=== PATIENT | male | born 1965 | race Caucasian/White ===

== ENCOUNTER 2020-06-21 15:23 | Outpatient (REF) | payer SELFPAY | END 2020-06-21 15:24 | disposition home or self-care (01) | LOC: HO.BBR 15:23 | PROVIDERS: Visit Provider Internal Medicine | DX: Z13.89 Encounter for screening for other disorder (principal) ==

== ENCOUNTER 2020-09-19 12:45 | Outpatient (REF) | payer OTHER, SELFPAY | END 2020-09-19 12:46 | disposition home or self-care (01) | LOC: HO.BBR 12:45 | PROVIDERS: Visit Provider Internal Medicine | DX: Z13.89 Encounter for screening for other disorder (principal) ==

== ENCOUNTER 2020-12-19 12:22 | Outpatient (REF) | payer OTHER, SELFPAY | END 2020-12-19 12:23 | disposition home or self-care (01) | LOC: HO.BBR 12:22 | PROVIDERS: Visit Provider Internal Medicine | DX: Z13.89 Encounter for screening for other disorder (principal) ==

== ENCOUNTER 2021-03-14 11:52 | Outpatient (REF) | payer MEDICARE, OTHER, SELFPAY | END 2021-03-14 11:53 | disposition home or self-care (01) | LOC: HO.BBR 11:52 | PROVIDERS: Visit Provider Internal Medicine | DX: Z13.89 Encounter for screening for other disorder (principal) ==

== ENCOUNTER 2021-07-05 10:26 | Outpatient (REF) | payer MEDICARE, OTHER, SELFPAY ==
[2021-07-05 12:01] LABS: Hematocrit 48.1 % (42.0-52.0)
[2021-07-05 13:03] LABS: Ferritin 33 ng/mL (20-250)
== END 2021-07-05 10:27 | disposition home or self-care (01) ==
LOC: HO.BBR 10:26
PROVIDERS: PCP Internal Medicine; Visit Provider Internal Medicine
DX: E83.110 Hereditary hemochromatosis (principal)
CPT/HCPCS: 36415; 82728; 85014

== ENCOUNTER 2021-10-26 13:47 | Outpatient (REF) | payer MEDICARE, OTHER, SELFPAY ==
[2021-10-26 14:12] LABS: Hematocrit 50.5 % (42.0-52.0); Hemoglobin 17.7 g/dl (14.0-18.0)
[2021-10-26 14:55] LABS: Ferritin 46 ng/mL (20-250)
== END 2021-10-26 13:48 | disposition home or self-care (01) ==
LOC: HO.BBR 13:47
PROVIDERS: Visit Provider Internal Medicine
DX: E83.110 Hereditary hemochromatosis (principal)
CPT/HCPCS: 36415; 82728; 85014; 85018

== ENCOUNTER 2022-01-25 13:51 | Outpatient (REF) | payer MEDICARE, OTHER, SELFPAY ==
[2022-01-25 14:17] LABS: Hematocrit 47.7 % (42.0-52.0)
[2022-01-25 15:10] LABS: Ferritin 51 ng/mL (20-250)
== END 2022-01-25 13:52 | disposition home or self-care (01) ==
LOC: HO.BBR 13:51
PROVIDERS: Visit Provider Internal Medicine
DX: E83.110 Hereditary hemochromatosis (principal)
CPT/HCPCS: 36415; 82728; 85014

== ENCOUNTER 2022-04-24 14:56 | Outpatient (REF) | payer MEDICARE, OTHER, SELFPAY ==
[2022-04-24 15:14] LABS: Hematocrit 48.7 % (42.0-52.0)
[2022-04-24 16:04] LABS: Ferritin 26 ng/mL (20-250)
== END 2022-04-24 14:57 | disposition home or self-care (01) ==
LOC: HO.BBR 14:56
PROVIDERS: Visit Provider Internal Medicine
DX: E83.110 Hereditary hemochromatosis (principal)
CPT/HCPCS: 36415; 82728; 85014

== ENCOUNTER 2022-08-08 10:46 | Outpatient (REF) | payer MEDICARE, OTHER, SELFPAY ==
[2022-08-08 11:09] LABS: Hematocrit 47.6 % (42.0-52.0); Hemoglobin 16.8 g/dl (14.0-18.0)
[2022-08-08 12:04] LABS: Ferritin 46 ng/mL (20-250)
== END 2022-08-08 10:47 | disposition home or self-care (01) ==
LOC: HO.BBR 10:46
PROVIDERS: Visit Provider Internal Medicine
DX: E83.110 Hereditary hemochromatosis (principal)
CPT/HCPCS: 36415; 82728; 85014; 85018

== ENCOUNTER 2022-11-07 10:59 | Outpatient (REF) | payer MEDICARE, OTHER, SELFPAY ==
[2022-11-07 11:19] LABS: Hematocrit 47.9 % (42.0-52.0)
[2022-11-07 12:37] LABS: Ferritin 55 ng/mL (20-250)
== END 2022-11-07 11:00 | disposition home or self-care (01) ==
LOC: HO.BBR 10:59
PROVIDERS: PCP Internal Medicine; Visit Provider Internal Medicine
DX: E83.110 Hereditary hemochromatosis (principal)
CPT/HCPCS: 36415; 82728; 85014

== ENCOUNTER → 2022-11-12 10:36 | Outpatient (BNVA) | payer MEDICARE, MEDICAID, SELFPAY | PROVIDERS: PCP Internal Medicine; Visit Provider Nurse Practitioner Family | DX: Z12.11 Encounter for screening for malignant neoplasm of colon (principal); Z80.0 Family history of malignant neoplasm of digestive organs | CPT/HCPCS: 99202 ==

== ENCOUNTER 2023-02-06 12:29 | Outpatient (REF) | payer MEDICARE, MEDICAID, SELFPAY ==
[2023-02-06 13:42] LABS: Hematocrit 46.7 % (42.0-52.0)
[2023-02-06 14:43] LABS: Ferritin 71 ng/mL (20-250)
== END 2023-02-06 12:30 | disposition home or self-care (01) ==
LOC: HO.BBR 12:29
PROVIDERS: PCP Internal Medicine; Visit Provider Internal Medicine
DX: E83.110 Hereditary hemochromatosis (principal)
CPT/HCPCS: 36415; 82728; 85014

== ENCOUNTER 2023-05-08 10:43 | Outpatient (REF) | payer MEDICARE, MEDICAID, SELFPAY ==
[2023-05-08 11:11] LABS: Hematocrit 43.9 % (42.0-52.0); Hemoglobin 16.1 g/dl (14.0-18.0)
[2023-05-08 12:31] LABS: Ferritin 105 ng/mL (20-250)
== END 2023-05-08 10:44 | disposition home or self-care (01) ==
LOC: HO.BBR 10:43
PROVIDERS: PCP Internal Medicine; Visit Provider Internal Medicine
DX: E83.110 Hereditary hemochromatosis (principal)
CPT/HCPCS: 36415; 82728; 85014; 85018; 99195

== ENCOUNTER 2023-07-30 10:47 | Outpatient (REF) | payer MEDICARE, SELFPAY ==
[2023-07-30 14:45] LABS: Estimated Average Glucose 91 mg/dL; Hemoglobin A1c % 4.8 % (<6.0)
[2023-07-30 14:52] LABS: Alanine Aminotransferase 36 U/L (0-40); Albumin Level 3.8 g/dL (3.5-5.0); Alkaline Phosphatase 69 U/L (39-117); Anion Gap 14 (12-20); Aspartate Amino Transferase 64 U/L (5-37); Bilirubin Total 0.6 mg/dL (0.0-1.0); Blood Urea Nitrogen 12 mg/dL (9-16); Calcium 8.9 mg/dL (8.4-10.2); Carbon Dioxide 25 mmol/L (22-29); Chloride 103 mmol/L (96-108); Cholesterol 153 mg/dL (<200); Estimated Glomerular Filt Rate > 60; Glucose Random 102 mg/dL (60-115); HDL Cholesterol 63 mg/dL (>40); Potassium 3.4 mmol/L (3.3-5.1); Sodium 139 mmol/L (135-145); Total Protein 6.7 g/dL (6.5-8.0); Triglycerides 436 mg/dL (<150)
[2023-07-30 15:04] LABS: Prostate Specific Antigen Scr 0.32 ng/mL (<0.05-4.0)
[2023-07-30 15:11] LABS: TSH reflex Free T4 1.75 uIU/mL (0.32-4.0)
== END 2023-07-30 10:48 | disposition home or self-care (01) ==
LOC: HO.CHCLDS 10:47
PROVIDERS: Visit Provider Internal Medicine
DX: Z12.5 Encounter for screening for malignant neoplasm of prostate (principal); I10 Essential (primary) hypertension; E83.118 Other hemochromatosis; E87.6 Hypokalemia; R63.4 Abnormal weight loss
CPT/HCPCS: 36415; 80053; 80061; 83036; 84153; 84443

== ENCOUNTER 2023-08-08 10:50 | Outpatient (REF) | payer MEDICARE, SELFPAY ==
[2023-08-08 11:11] LABS: Hematocrit 44.8 % (42.0-52.0); Hemoglobin 16.3 g/dl (14.0-18.0)
[2023-08-08 12:53] LABS: Ferritin 316 ng/mL (20-250)
== END 2023-08-08 10:51 | disposition home or self-care (01) ==
LOC: HO.BBR 10:50
PROVIDERS: PCP Internal Medicine; Visit Provider Internal Medicine
DX: E83.110 Hereditary hemochromatosis (principal)
CPT/HCPCS: 36415; 82728; 85014; 85018

== ENCOUNTER 2023-08-15 11:26 | Outpatient (REF) | payer MEDICARE, SELFPAY ==
--- NOTE | ~2023-08-15 | US_ITS ---
EXAMINATION: US ABDOMEN COMPLETE CLINICAL INFORMATION: Transaminitis. COMPARISON: CT abdomen and pelvis 11/05/2016. TECHNIQUE: Real-time imaging of the abdominal viscera. FINDINGS: PANCREAS: Normal. ABDOMINAL AORTA: The proximal, mid, and distal segments are normal in caliber. INFERIOR VENA CAVA: Visualized portions are normal. LIVER: Normal. The liver is normal in size. The liver contour is normal. There is diffuse increased liver parenchymal echogenicity, consistent with hepatic steatosis. No focal hepatic lesion. There is no intrahepatic biliary duct dilatation seen. GALLBLADDER: Normal. The gallbladder is physiologically distended without evidence of stones, sludge, polyps, wall thickening or pericholecystic fluid. COMMON BILE DUCT: Normal in caliber measuring 0.3 cm in diameter. RIGHT KIDNEY: Normal. No hydronephrosis. No renal calculi or focal parenchymal lesions. The kidney measures 12.4 cm in maximum dimension. LEFT KIDNEY: Normal. No hydronephrosis. No renal calculi or focal parenchymal lesions. The kidney measures 12.6 cm in maximum dimension. SPLEEN: Normal. The spleen measures 12.5 cm in maximum dimension. FREE FLUID: None. US/US abdomen complete IMPRESSION: Hepatic steatosis. No biliary ductal dilatation.
== END 2023-08-15 11:27 | disposition home or self-care (01) ==
LOC: HO.HMGCX 11:26
PROVIDERS: PCP Internal Medicine; Visit Provider Internal Medicine
DX: R74.01 Elevation of levels of liver transaminase levels (principal)
CPT/HCPCS: 76700

== ENCOUNTER 2023-11-07 10:37 | Outpatient (REF) | payer MEDICARE, SELFPAY ==
[2023-11-07 11:00] LABS: Hematocrit 44.9 % (42.0-52.0)
[2023-11-07 12:45] LABS: Ferritin 37 ng/mL (20-250)
== END 2023-11-07 10:38 | disposition home or self-care (01) ==
LOC: HO.BBR 10:37
PROVIDERS: PCP Internal Medicine; Visit Provider Internal Medicine
DX: E83.110 Hereditary hemochromatosis (principal)
CPT/HCPCS: 36415; 82728; 85014; 85018

== ENCOUNTER 2024-02-06 11:43 | Outpatient (REF) | payer MEDICARE, SELFPAY ==
[2024-02-06 12:01] LABS: Hematocrit 48.8 % (42.0-52.0); Hemoglobin 17.3 g/dl (14.0-18.0)
[2024-02-06 13:27] LABS: Ferritin 38 ng/mL (20-250)
== END 2024-02-06 11:44 | disposition home or self-care (01) ==
LOC: HO.BBR 11:43
PROVIDERS: PCP Internal Medicine; Visit Provider Internal Medicine
DX: E83.110 Hereditary hemochromatosis (principal)
CPT/HCPCS: 36415; 82728; 85014; 85018

== ENCOUNTER 2024-06-01 15:14 | Outpatient (REF) | payer MEDICARE, SELFPAY ==
[2024-06-01 16:26] LABS: Ferritin 32 ng/mL (20-250)
== END 2024-06-01 15:15 | disposition home or self-care (01) ==
LOC: HO.BBR 15:14
PROVIDERS: PCP Internal Medicine; Visit Provider Internal Medicine
DX: E83.110 Hereditary hemochromatosis (principal)
CPT/HCPCS: 36415; 82728

== ENCOUNTER 2024-09-01 12:52 | Outpatient (REF) | payer MEDICARE, SELFPAY ==
--- OUTSIDE RECORDS SUMMARY | 2024-09-01 13:04 | XMS_ITS | Encounter Summary ---
Author Organization [employer] Address [address] [facility] [address] [place] [address] Care Team Providers Care Tuyere Fitter Name Role Phone Rosenda Meadows MD Primary Care Provider Encounter Details Date Type Department Care Team (Late st Contact Info) Description 11/26/2022 Orders Only [facility] CHC MED & PEDS [address] [place], [place] [phone] Nat Lucas LPN Social History Tobacco Use Types Packs/Day Years Used Date Smoking Tobacco: Every Day Cigarettes 1 42 Smokeless Tobacco: Never Alcohol Use Standard Drinks/Week Comments Yes 4 (1 standard drink = 0.6 oz pur e alcohol) Alcohol Answer Date Recorded Q1: How often do you have a drink containing alc ohol? 5 06/27/2022 Q2: How many drinks containi ng alcohol do you have on a typical day when you are drinking? 2 06/27/2022 Q3: How often do you have six or more drinks on one occasion? 3 06/27/2022 Depression Answer Date Recorded Patient Health Questionnaire-9 Score 0 06/27/2022 Depression Answer Date Recorded Patient Health Questionnaire-2 Score 0 06/27/2022 Sex and Gender Information Value Date Recorded Sex Assigned at Male 05/13/2022 10:22 AM EDT Legal Sex Male 10:22 AM EDT Gender Identity Choose not to disclose 10:22 AM EDT Sexual Orientation Choose not to disclose 2021 10:22 AM EDT documented as of this encounter Plan of Treatment Not on file documented as of this encounter Visit Diagnoses Not on filedocumented in this encounter Additional Health Concerns Assessment Noted Time PHQ-9 Depression Total Score: 0 06/27/20 22 2:22 PM EST documented as of this encounter Care Teams Tuyere Fitter Relationship Specialty Start Date End Date Rosenda Meadows MD [address] [place] [phone] PCP - General Internal Medicine 10/30/11 documented as of this encounter
--- OUTSIDE RECORDS SUMMARY | 2024-09-01 13:04 | XMS_ITS | Encounter Summary ---
Author Organization [employer] Address [address] [facility] [address] [place] [address] Care Team Providers Care Title I Director Name Role Phone Rosenda Meadows MD Primary Care Provider Reason for Visit * Reason Onset Date Comments Lab Orders 05/03/2024 Encounter Details Date Type Department Care Team ([facility] st Contact Info) Description 05/03/2024 Telephone [facility] CHC MED & PEDS [address] [place], [place] [phone] Rosenda Meadows MD [address] [place] [address] Lab Orders Social History Tobacco Use Types Packs/Day Years [...] Answer Date Recorded Patient Health Questionnaire-9 Score 1 07/30/2023 Patient Health Questionnaire-9 Score 1 07/30/2023 Last PHQ-9: Questionnaire Data Not on file 0 07/30/2023 Housing Stability Answer Date Recorded What is your housing situation today? I have [employer]olia [employer] 06/26/[address] you li ve. Do you have problems with any of the following? None of the above 06/26/2023 Food Insecurity Answer Date Recorded Within the past 12 months, y ou worried that your food would run out before you got money to buy more: Never True 07/21/2023 Within the past 12 months,th e food you bought just didn't last and you didn't have enough money to get more: Never True 02/2024 Transportation Answer Date Recorded In the past 12 months, has l ack of transportation kept you from medical appts, meetings, work or from getting things needed for daily living? No 07/21/2023 Utilities Answer Date Recorded In the past 12 months, has t he electric, gas, oil or water company threatened to shut off services in your home? No 07/21/2023 Depression Answer Date Recorded Patient Health Questionnaire-2 Score 0 07/30/2023 Sex and Gender Information Value Date Recorded Sex Assigned at Male 05/13/2022 10:22 AM EDT Legal Sex Male 10:22 AM EDT Gender Identity Choose not to disclose 10:22 AM EDT Sexual Orientation Choose not to disclose 2021 10:22 AM EDT documented as of this encounter Miscellaneous Notes * Telephone Encounter - Melva Lambert RN - 05/04/2024 12:45 PM EDT Pt. Requesting labs for hematochromatosis dx, noted typically done q. 3 months. Last done In January * Telephone Encounter - Araceli Sue - 05/03/2024 12:08 PM EDT Tc from pt requesting a new order for hemoglobin. documented in this encounter Plan of Treatment Not on file documented as of this encounter Visit Diagnoses Not on filedocumented in this encounter Additional Health Concerns Assessment Noted Time PHQ-9 Depression Total Score: 1 07/30/19 24 10:36 AM EST documented as of this encounter Care Teams Title I Director Relationship Specialty Start Date End Date Rosenda Meadows MD [address] [place] [id number] PCP - General Internal Medicine 10/30/11 documented as of this encounter
--- OUTSIDE RECORDS SUMMARY | 2024-09-01 13:04 | XMS_ITS | Encounter Summary ---
Author Organization [employer] Address [address] [facility] [address] [place] [address] Care Team Providers Care Photoengraving Apprentice Name Role Phone Rosenda Meadows MD Primary Care Provider Encounter Details Date Type Department Care Team (Late st Contact Info) Description 05/05/[address] [facility] CHC MED & PEDS [address] [place], [place] [phone] Rosenda Meadows MD [address] [place], [place] [phone] Other hemochromatosis (Primary Dx) Social History Tobacco Use Types Packs/Day Years [...] your housing situation today? I have [employer]olia sharpe 06/26/[address] you li [...] as of this encounter Plan of Treatment Scheduled Orders Name Type Priority Associated Diagnoses Orde r Schedule Hemoglobin and Hematocrit Lab Routine Other hemochromatosis Expected: 05/05/2024, Expires: 05/05/2025 documented as of this encounter Procedures Procedure Name Priority Date/Time Associated Diagnosis Comments FERRITIN Routine 06/01/2024 3:30 PM EST Other hemochromatosis documented in this encounter Results * Ferritin (06/01/2024 3:30 PM EST) Ferritin 32 20 - 250 ng/mL [facility] Blood Venous blood specimen / Unknown 06/01/2024 3:30 PM EST 06/01/2024 3:46 PM EST us Rosenda Meadows MD LAB BLOOD ORDERABLES Final Result [facility] [address] [place], [place] [phone] documented in this encounter Visit Diagnoses Diagnosis Other hemochromatosis- Primary documented in this encounter Additional Health Concerns Assessment Noted Time PHQ-9 Depression Total Score: 1 07/30/19 24 10:36 AM EST documented as of this encounter Care Teams Photoengraving Apprentice Relationship Specialty Start Date End Date Rosenda Meadows MD [address] [place] [phone] PCP - General Internal Medicine 10/30/11 documented as of this encounter
--- OUTSIDE RECORDS SUMMARY | 2024-09-01 13:04 | XMS_ITS | Encounter Summary ---
Author Organization [employer] Address [address] [place] [address] Care Team Providers Care Wireless Architect Name Role Phone Rosenda Meadows MD Primary Care Provider Encounter Details Date Type Department Care Team (Latest Contact Info) Description 08/23/2024 Travel Social History Tobacco Use Types Packs/Day Years Used Date Smoking Tobacco: Every Day Cigarettes 1 42 Smokeless Tobacco: Never Alcohol Use Standard Drinks/Week Comments Yes 4 (1 standard drink = 0.6 oz pur e alcohol) Alcohol Answer Date Recorded How often do you have a drink containing alcohol ? 2 08/23/2024 How many drinks containing a lcohol do you have on a typical day when you are drinking? 1 08/23/2024 How often do you have six or more drinks on one occasion? 1 08/23/2024 Depression Answer Date Recorded Patient Health Questionnaire-9 Score 0 08/23/2024 Patient Health Questionnaire-9 Score 0 08/23/2024 Last PHQ-9: Questionnaire Data Not on file 0 08/23/2024 Housing Stability Answer Date Recorded What is your housing situation today? I have magnoliaamara sharpe 08/16/[address] you li ve. Do you have problems with any of the following? None of the above 08/16/2024 Food Insecurity Answer Date Recorded Within the past 12 months, y ou worried that your food would run out before you got money to buy more: Never True 08/16/2024 Within the past 12 months,th e food you bought just didn't last and you didn't have enough money to get more: Never True 09/2024 Transportation Answer Date Recorded In the past 12 months, has l ack of transportation kept you from medical appts, meetings, work or from getting things needed for daily living? No 08/16/2024 Utilities Answer Date Recorded In the past 12 months, has t he electric, gas, oil or water [employer] threatened to shut off services in your home? No 08/16/2024 Depression Answer Date Recorded Patient Health Questionnaire-2 Score 0 08/23/2024 Internet Access Answer Date Recorded Internet Access Q1 Yes 08/16/2024 Internet Access Q2 Not on file 08/16/2024 Sex and Gender Information Value Date Recorded [...] Noted Time PHQ-9 Depression Total Score: 0 08/23/19 25 3:42 PM EST documented as of this encounter Care Teams Wireless Architect Relationship Specialty Start Date End Date Rosenda Meadows MD [address] [place] [phone] PCP - General Internal Medicine 10/30/11 documented as of this encounter
--- OUTSIDE RECORDS SUMMARY | 2024-09-01 13:04 | XMS_ITS | Encounter Summary ---
Author Organization [employer] Address [address] [facility] 7[address] [place] [address] Care Team Providers Care Food Service Steward Name Role Phone Rosenda Meadows MD Primary Care Provider Reason for Visit * Reason Comments Extended office visit Encounter Details Date Type Department Care Team (Late st Contact Info) Description 08/23/2024 2:45 PM EST Office Visit [facility] [address] [place], [place] [phone] Rosenda Meadows MD [address] [place] [address] Benign hypertension (Primary Dx); Other hemochromatosis; Dietary counseling; Exercise counseling; Class 1 obesity due to excess calories with serious comorbidity and body mass index (BMI) of 30.0 to 30.9 in adult; Other secondary acute gout of right knee; Erectile dysfunction due to arterial insufficiency; Hypercholesterolemia; Primary insomnia; Encounter for immunization Social History Tobacco Use Types Packs/Day Years [...] housing situation today? I have [place] 08/16/[address] you [...] AM EDT documented as of this encounter Last Filed Vital Signs Vital Sign Reading Time Taken Comments Blood Pressure 155/84 08/23/2024 2:49 PM EST Pulse 55 08/23/2024 2:49 PM EST Temperature 36.9 ??C (98.4 ??F) 08/23/2024 2:49 PM ES T Respiratory Rate 20 08/23/2024 2:49 PM EST Oxygen Saturation 97% 08/23/2024 2:49 PM EST Inhaled Oxygen Concentration - - Weight 121 kg (267 lb) 08/23/2024 2:49 PM EST Height 198.1 cm (6' 6 ) 08/23/2024 2:49 PM EST Body Mass Index 30.85 08/23/2024 2:49 PM EST documented in this encounter Progress Notes * Rosenda Meadows MD - 08/23/2024 2:45 PM EST Subjective Patient ID: Steven Eddy is a 59 y.o. adult who presents for Extended office visit. HPI Patient is here for an extended office visit. He is requesting a refill indomethacin for his gout. Had a recent gout attack 1 week ago. He continues to drink up to 5 drinks a day and continues to smoke 1-1 and half pack of cigarettes aday. Patient Active Problem List Diagnosis Benign hypertension Hypokalemia Insomnia Non-allergic asthma Peripheral nerve entrapment syndrome Hemochromatosis Dental caries Dental abscess Generalized aggressive severe periodontitis Dental calculus Current Outpatient Medications on File Prior to Visit Medication Sig Dispense Refill albuterol (ProAir HFA) 108 (90 Base) MCG/ACT inhaler INHALE 2 PUFFS BY MOUTH EVERY 4-6 HOURS NEEDED 8.5 g 5 aspirin 81 MG EC tablet Take 1 tablet by mouth 1 (one) time each day. atenolol (Tenormin) 100 MG tablet TAKE 1 TABLET BY MOUTH EVERY DAY 90 tablet 1 carBAMazepine XR (TEGretol XR) 200 MG 12 hr tablet TAKE 1 TABLET BY MOUTH EVERY 12 HOURS 180 tablet1 lisinopril 5 MG tablet TAKE 1 TABLET BY MOUTH EVERY DAY 90 tablet 1 nicotine (Nicoderm, Step 1) 21 MG/24HR patch Place 1 patch on the skin 1 (one) time each day. Remove at bedtime simvastatin (Zocor) 20 MG tablet TAKE 1 TABLET BY MOUTH EVERY DAY IN THE EVENING 90 tablet 1 traZODone (Desyrel) 150 MG tablet TAKE TWO TABLETS BY MOUTH AT BEDTIME 60 tablet 5 traZODone (Desyrel) 150 MG tablet TAKE TWO TABLETS BY MOUTH AT BEDTIME 60 tablet 11 [DISCONTINUED] atenolol (Tenormin) 100 MG tablet Take 1 tablet (100 mg) by mouth Once per day. 90 tablet 3 [DISCONTINUED] lisinopril 5 MG tablet TAKE 1 TABLET BY MOUTH EVERY DAY ONE DOSE 90 tablet 1 [DISCONTINUED] simvastatin (Zocor) 20 MG tablet Take 1 tablet (20 mg) by mouth in the evening. 90 tablet 3 [DISCONTINUED] traZODone (Desyrel) 300 MG tablet Take 1 tablet by mouth at bedtime. [DISCONTINUED] vardenafil (Levitra) 20 MG tablet TAKE 1 TABLET 1 HOUR BEFORE SEXUAL RELATIONS ONCE DAILY NEEDED. 12 tablet 0 No current facility-administered medications on file prior to visit. No Known Allergies Review of Systems Constitutional: Negative for appetite change, chills and diaphoresis. Eyes: Negative for pain, redness and itching. Respiratory: Negative for cough, choking and chest tightness. Gastrointestinal: Negative for anal bleeding and blood in stool. Musculoskeletal: Positive for arthralgias. Objective Physical Exam Constitutional: General: Steven is not in acute distress. Appearance: Normal appearance. Steven is obese. Steven is not ill-appearing, toxic-appearing or diaphoretic. Cardiovascular: Rate and Rhythm: Normal rate. Pulmonary: Effort: Pulmonary effort is normal. No respiratory distress. Breath sounds: No stridor. No wheezing or rhonchi. Abdominal: Palpations: Abdomen is soft. Genitourinary: Penis: Normal. Testes: Normal. Skin: Comments: Erythema and telangiectasias of the cheeks and forehead Neurological: General: No focal deficit present. Mental Status: Steven is alert. Assessment/Plan Diagnoses and all orders for this visit: Benign hypertension Comments: Elevated BP DASH diet Increase lisinopril to 10 mg once a day Continue with rest of medication Orders: - Lipid Panel, Standard; Future - Hepatitis C Viral RNA, Quantitative, Real-Time PCR; Future - CBC auto differential; Future - Comprehensive Metabolic Panel; Future - TSH W/Reflex to FT4; Future - lisinopril 10 MG tablet; TAKE 1 TABLET BY MOUTH EVERY DAY ONE DOSE - atenolol (Tenormin) 100 MG tablet; Take 1 tablet (100 mg) by mouth Once per day. Other hemochromatosis Comments: Continue with phlebotomy as directed every 3 months Orders: - Lipid Panel, Standard; Future - Hepatitis C Viral RNA, Quantitative, Real-Time PCR; Future - CBC auto differential; Future - Comprehensive Metabolic Panel; Future - TSH W/Reflex to FT4; Future Dietary counseling Exercise counseling Class 1 obesity due to excess calories with serious comorbidity and body mass index (BMI) of 30.0 to 30.9 in adult Dietary Recommendations: Fruits, vegetables, whole grains, protein foods, and fat-free or low-fat dairy products are healthychoices. Eat different types of protein foods in your diet. This can include seafood, lean meats, poultry, beans, peas, lentils, nuts, seeds, soy products, and eggs. Limit foods and beverages higher in added sugars, saturated fat, and sodium. Exercise Recommendations: At least 150 minutes of moderate-intensity physical activity per week, or an equivalent combinationof moderate- and vigorous-intensity activity Other secondary acute gout of right knee Comments: Avoidance of alcohol recommended Low purine diet Orders: - indomethacin (Indocin) 50 MG capsule; Take 1 capsule (50 mg) by mouth with breakfast and with evening meal. Erectile dysfunction due to arterial insufficiency - vardenafil (Levitra) 20 MG tablet; Take 1 tablet (20 mg) by mouth if needed each day for erectiledysfunction. Hypercholesterolemia Comments: Continue with the low-cholesterol diet and the same medication Lipid panel ordered. Patient will be contacted with results Orders: - simvastatin (Zocor) 20 MG tablet; Take 1 tablet (20 mg) by mouth in the evening. Primary insomnia - traZODone (Desyrel) 300 MG tablet; Take 1 tablet (300 mg) by mouth at bedtime. Encounter for immunization - TDAP VACCINE 7 yrs + Lengthy discussion held regarding the need to perform a Cologuard. Patient agreed to try to do it this time. He is not interested in getting help to quit smoking. Patient also feels that he does not need help to quit drinking. He was advised to limit his drinking to no more than 2 drinks a day. documented in this encounter Miscellaneous Notes * Patient Education Note - Rosenda Meadows MD - 08/24/2024 12:36 AM EST Images from the original note were not included. Patient Education Table of Contents Low-Purine Eating Plan To view videos and all your education online visit, [email or web address] or scan this QR code with your smartphone. Access to this content will in one year. Low-Purine Eating Plan A low-purine eating plan involves making food choices to limit your purine intake. Purine is a kindof uric acid. Too much uric acid in your blood can cause certain conditions, such as gout and kidney stones. Eating a low-purine diet may help control these conditions. What are tips for following this plan? Shopping Avoid buying products that contain high-fructose corn syrup. Check for this on food labels. It is commonly found in many processed foods and soft drinks. Be sure to check for it in baked goods such as cookies, canned fruits, and cereals and cereal bars. Avoid buying veal, chicken breast with skin, jean, and organ meats such as liver. These types of meats tend to have the highest purine content. Choose dairy products. These may lower uric acid levels. Avoid certain types of fish. Not all fish and seafood have high purine content. Examples with high purine content include anchovies, trout, tuna, sardines, and salmon. Avoid buying beverages that contain alcohol, particularly beer and hard liquor. Alcohol can affect the way your body gets rid of uric acid. Meal planning Learn which foods do or do not affect you. If you find out that a food tends to cause your gout symptoms to flare up, avoid eating that food. You can enjoy foods that do not cause problems. If you have any questions about a food item, talk with your dietitian or health care provider. Reduce the overall amount of meat in your diet. When you do eat meat, choose ones with lower purinecontent. Include plenty of fruits and vegetables. Although some vegetables may have a high purine content?such as asparagus, mushrooms, spinach, or cauliflower?it has been shown that these do not contribute to uric acid blood levels as much. Consume at least 1 dairy serving a day. This has been shown to decrease uric acid levels. General information If you drink alcohol: ? Limit how much you have to: ? 0?1 drink a day for women who are not . ? 0?2 drinks a day for men. ? Know how much alcohol is in a drink. In the [place] one drink equals one 12 oz bottle of beer (355 mL), one 5 oz glass of wine (148 mL), or one 1? oz glass of hard liquor (44 mL). Drink plenty of water. Try to drink enough to keep your urine pale yellow. Fluids can help remove uric acid from your body. Work with your health care provider and dietitian to develop a plan to achieve or maintain a healthy weight. Losing weight may help reduce uric acid in your blood. What foods are recommended? The following are some types of foods that are good choices when limiting purine intake: Fresh or frozen fruits and vegetables. Whole grains, breads, cereals, and pasta. Rice. Beans, peas, legumes. Nuts and seeds. Dairy products. Fats and oils. The items listed above may not be a complete list. Talk with a dietitian about what dietary choicesare best for you. What foods are not recommended? Limit your intake of foods high in purines, including: Beer and other alcohol. Meat-based gravy or sauce. Canned or fresh fish, such as: ? Anchovies, sardines, lee, salmon, and tuna. ? Mussels and scallops. ? Codfish, trout, and primitivo. Rivera, veal, chicken breast with skin, and jean. Organ meats, such as: ? Liver or kidney. ? Tripe. ? Sweetbreads (thymus gland or pancreas). Wild game or goose. Yeast or yeast extract supplements. Drinks sweetened with high-fructose corn syrup, such as soda. Processed foods made with high-fructose corn syrup. The items listed above may not be a complete list of foods and beverages you should limit. Contact a dietitian for more information. Summary Eating a low-purine diet may help control conditions caused by too much uric acid in the body, suchas gout or kidney stones. Choose low-purine foods, limit alcohol, and limit high-fructose corn syrup. You will learn over time which foods do or do not affect you. If you find out that a food tends to cause your gout symptoms to flare up, avoid eating that food. This information is not intended to replace advice given to you by your health care provider. Make sure you discuss any questions you have with your health care provider. Document Released: 2011-10-25 Document Updated: 2022-06-13 Document Reviewed: 2022-06-13 [employer] Patient Education ? 2023 [employer]. documented in this encounter Plan of Treatment Scheduled Orders Name Type Priority Associated Diagnoses Orde r Schedule Lipid Panel, Standard Lab Routine Benign hypertension Other hemochromatosis Expected: 08/23/2024 (Approximate), Expires: 08/23/2025 Hepatitis C Viral RNA, Quantitative, Real-Time PCR Lab Routine Benign hypertension Other hemochromatosis Expected: 08/23/2024 (Approximate), Expires: 08/23/2025 CBC auto differential Lab Routine Benign hypertension Other hemochromatosis Expected: 08/23/2024 (Approximate), Expires: 08/23/2025 Comprehensive Metabolic Panel Lab Routine Benign hypertension Other hemochromatosis Expected: 08/23/2024 (Approximate), Expires: 08/23/2025 TSH W/Reflex to FT4 Lab Routine Benign hypertension Other hemochromatosis Expected: 08/23/2024 (Approximate), Expires: 08/23/2025 documented as of this encounter Visit Diagnoses Diagnosis Benign hypertension- Primary Essential hypertension, benign Other hemochromatosis Dietary counseling Dietary surveillance and counseling Exercise counseling Class 1 obesity due to excess calories with serious comorbidity and body mass index (BMI) of 30.0 to 30.9 in adult Other secondary acute gout of right knee Erectile dysfunction due to arterial insufficiency Hypercholesterolemia Pure hypercholesterolemia Primary insomnia Persistent disorder of initiating or maintaining sleep Encounter for immunization documented in this encounter Additional Health Concerns Assessment Noted Time PHQ-9 Depression Total Score: 0 08/23/19 25 3:42 PM EST documented as of this encounter Care Teams Food Service Steward Relationship Specialty Start Date End Date Rosenda Meadows MD [address] [place] [id number] PCP - General Internal Medicine 10/30/11 documented as of this encounter
--- OUTSIDE RECORDS SUMMARY | 2024-09-01 13:04 | XMS_ITS | Encounter Summary ---
Author Organization [employer] Address [address] [facility] 7[address] [place] [address] Care Team Providers Care Head Turbine Operator Name Role Phone Rosenda Meadows MD Primary Care Provider Encounter Details Date Type Department Care Team (Late st Contact Info) Description 05/08/2023 Telephone [facility] [address] [place] [address] Rosenda Meadows MD [address] [place], [place] [phone] Social History Tobacco Use Types Packs/Day Years [...] Time PHQ-9 Depression Total Score: 0 06/27/20 2:22 PM EST documented as of this encounter Care Teams Head Turbine Operator Relationship Specialty Start Date End Date Rosenda Meadows MD [address] [place] [id number] PCP - General Internal Medicine 10/30/11 documented as of this encounter
--- OUTSIDE RECORDS SUMMARY | 2024-09-01 13:04 | XMS_ITS | Encounter Summary ---
Author Organization [employer] Address [address] [place] [address] [address] [place] [address] Care Team Providers Care Satellite Installer Name Role Phone Rosenda Meadows MD Primary Care Provider [phone] Reason for Referral * Imaging (Routine) - Closed Specialty Diagnoses / Procedures Referred By Contac t Referred To Contact Radiology Diagnoses Weight loss Smoking Procedures CT Low Dose Screening Rosenda Meadows MD [address] [place] [phone] Phone: tel: fax: [facility] [address] [place] [address] Phone: tel: fax: Referral ID Status Reason Start Date Expiration Date Visits Re quested Visits Authorized [id number] Closed 08/08/2023 08/07/2024 1 1 * Imaging (Routine) - Closed Specialty Diagnoses / Procedures Referred By Contac t Referred To Contact Radiology Diagnoses Transaminitis Procedures US Abdomen Complete Rosenda Meadows MD [address] [place] [address] Phone: tel: fax: [facility] [address] [place] [address] Phone: tel: fax: Referral ID Status Reason Start Date Expiration Date Visits Re quested Visits Authorized [id number] Closed 07/30/2023 07/29/2024 1 1 Encounter Details Date Type Department Care Team (Late st Contact Info) Description 07/30/2023 Orders Only [facility] [address] [place] [address] Rosenda Meadows MD [address] [place] [address] Transaminitis (Primary Dx); Encounter for screening for other viral diseases; Benign hypertension; Hypercholesterolemia; Weight loss; Smoking Social History Tobacco Use Types Packs/Day Years [...] Type Priority Associated Diagnoses Orde r Schedule Hepatitis Panel, General Lab Routine Transaminitis Encounter for screening for other viral diseases Expected: 07/30/2023 (Approximate), Expires: 07/30/2024 CT Low Dose Screening Imaging Routine Weight loss Smoking Expected: 08/08/2023, Expires: 08/08/2024 documented as of this encounter Procedures Procedure Name Priority Date/Time Associated Diagnosis Comments US ABDOMEN COMPLETE Routine 08/15/2023 1 1:46 AM EST Transaminitis documented in this encounter Results * US Abdomen Complete (08/15/2023 11:46 AM EST) Anatomical Region Laterality Modality Abdomen Ultrasound 08/15/2023 11:4 6 AM EST Narrative 08/18/2023 10:55 AM EST ? [facility] ?[address] ? [place] [address] ? Ultrasound Report ? Signed ? Patient: Steven Eddy ?MR#: [id number] ?? [id number] ? : 1965 ?Acct:[id number] ? Age/Sex: 58 / M ?ADM Date: 08/15/23 ? Loc: HO.HMGCX ? Attending Dr: Rosenda Meadows MD ? Ordering Physician: Rosenda Meadows MD ?? Date of Service: 08/15/23 ?? Procedure(s): US abdomen complete ?? Accession Number(s): [id number] ? cc: Rosenda Meadows MD ? EXAMINATION: ?? US ABDOMEN COMPLETE ? CLINICAL INFORMATION: ?? Transaminitis. ? COMPARISON: ?? CT abdomen and pelvis 11/05/2016. ? TECHNIQUE: ?? Real-time imaging of the abdominal viscera. ? FINDINGS: ? PANCREAS: Normal. ? ABDOMINAL AORTA: The proximal, mid, and distal segments are normal in ?? caliber. ? INFERIOR VENA CAVA: Visualized portions are normal. ? LIVER: Normal. The liver is normal in size. The liver contour is ?? normal. There is diffuse increased liver parenchymal echogenicity, ?? consistent with hepatic steatosis. ??No focal hepatic lesion. There is ?? no intrahepatic biliary duct dilatation seen. ? GALLBLADDER: Normal. The gallbladder is physiologically distended ?? without evidence of stones, sludge, polyps, wall thickening or ?? pericholecystic fluid. ? COMMON BILE DUCT: Normal in caliber measuring 0.3 cm in diameter. ? RIGHT KIDNEY: Normal. No hydronephrosis. No renal calculi or focal ?? parenchymal lesions. The kidney measures 12.4 cm in maximum dimension. ? LEFT KIDNEY: Normal. No hydronephrosis. No renal calculi or focal ?? parenchymal lesions. The kidney measures 12.6 cm in maximum dimension. ? SPLEEN: Normal. The spleen measures 12.5 cm in maximum dimension. ? FREE FLUID: None. ? US/US abdomen complete ?? IMPRESSION: ?? Hepatic steatosis. No biliary ductal dilatation. ? Dictated By: ?Jl Brush MD ? Signed By: ?<Electronically signed by Jl Brush MD in OV> ?08/18/23 1051 ? DD/ 1146 ? TD/TT: ? Channel Cementer Outsole Machine: JK ? Procedure Note Danieladolfo, Image - 08/18/2023 [facility] [address] [place] [address] [place] [address] Ultrasound Report Signed Patient: Steven Eddy AMR#: [id number] : 1965Acct:[id number] Age/Sex: 58 / MADM Date: 08/15/23 Loc: HO.HMGCX Attending Dr: Rosenda Meadows MD Ordering Physician: Rosenda Meadows MD Date of Service: 08/15/23 Procedure(s): US abdomen complete Accession Number(s): [id number] cc: Rosenda Meadows MD EXAMINATION: US ABDOMEN COMPLETE CLINICAL INFORMATION: Transaminitis. COMPARISON: CT abdomen and pelvis 11/05/2016. TECHNIQUE: Real-time imaging of the abdominal viscera. FINDINGS: PANCREAS: Normal. ABDOMINAL AORTA: The proximal, mid, and distal segments are normal in caliber. INFERIOR VENA CAVA: Visualized portions are normal. LIVER: Normal. The liver is normal in size. The liver contour is normal. There is diffuse increased liver parenchymal echogenicity, consistent with hepatic steatosis. No focal hepatic lesion. There is no intrahepatic biliary duct dilatation seen. GALLBLADDER: Normal. The gallbladder is physiologically distended without evidence of stones, sludge, polyps, wall thickening or pericholecystic fluid. COMMON BILE DUCT: Normal in caliber measuring 0.3 cm in diameter. RIGHT KIDNEY: Normal. No hydronephrosis. No renal calculi or focal parenchymal lesions. The kidney measures 12.4 cm in maximum dimension. LEFT KIDNEY: Normal. No hydronephrosis. No renal calculi or focal parenchymal lesions. The kidney measures 12.6 cm in maximum dimension. SPLEEN: Normal. The spleen measures 12.5 cm in maximum dimension. FREE FLUID: None. US/US abdomen complete IMPRESSION: Hepatic steatosis. No biliary ductal dilatation. Dictated By: Jl Brush MD Signed By: <Electronically signed by Jl Brush MD in OV> 08/18/23 1051 DD/ 1146 TD/TT: Channel Cementer Outsole Machine: JK us Rosenda Meadows MD IMG US PROCEDURES Final Res ult documented in this encounter Visit Diagnoses Diagnosis Transaminitis- Primary Nonspecific elevation of levels of transaminase or lactic acid dehydrogenase (LDH) Encounter for screening for other viral diseases Benign hypertension Essential hypertension, benign Hypercholesterolemia Pure hypercholesterolemia Weight loss Loss of weight Smoking Tobacco use disorder documented in this encounter Additional Health Concerns Assessment Noted Time PHQ-9 Depression Total Score: 1 07/30/19 24 10:36 AM EST documented as of this encounter Care Teams Satellite Installer Relationship Specialty Start Date End Date Rosenda Meadows MD [address] [place] [id number] PCP - General Internal Medicine 10/30/11 documented as of this encounter
--- OUTSIDE RECORDS SUMMARY | 2024-09-01 13:04 | XMS_ITS | Encounter Summary ---
Author Organization [employer] Address [address] [facility] [address]t [place] [address] Care Team Providers Care Member Of Technical Staff Name Role Phone Rosenda Meadows MD Primary Care Provider [phone]- [phone] Reason for Visit * Reason Comments Pre-visit Planning SDOH negative, Tobac co screening negative. Encounter Details Date Type Department Care Team ([facility] st Contact Info) Description 08/16/2024 Patient Outreach [facility] [address] [place], [place] [phone] Rosenda Meadows MD [address] [place] [address] Pre-visit Planning (SDOH negative, Tobacco screening negative.) Social History Tobacco Use Types Packs/Day Years [...] Recorded Patient Health Questionnaire-2 Score 0 07/30/2023 Internet Access Answer Date Recorded Internet Access Q1 Yes 08/16/2024 Internet Access Q2 Not on file 08/16/2024 Sex and Gender Information Value Date Recorded Sex Assigned at Male 05/13/2022 10:22 AM EDT Legal Sex Male 10:22 AM EDT Gender Identity Choose not to disclose 10:22 AM EDT Sexual Orientation Choose not to disclose 2021 10:22 AM EDT documented as of this encounter Progress Notes * Marika Camarena - 08/16/2024 4:38 PM EST DANIA Bhakta placed successful outbound call to patient for pre-visit planning. Patient name and confirmed. Patient confirms appt date and time, and has transportation arrangements. Biggest concern for appointment at this time is no concerns. Appropriate screenings completed in anticipation ofappointment. documented in this encounter Plan of Treatment Not on file documented as of this encounter Visit Diagnoses Not on filedocumented in this encounter Additional Health Concerns Assessment Noted Time PHQ-9 Depression Total Score: 1 07/30/19 24 10:36 AM EST documented as of this encounter Care Teams Member Of Technical Staff Relationship Specialty Start Date End Date Rosenda Meadows MD [address] [place] [address] PCP - General Internal Medicine 10/30/11 documented as of this encounter
--- OUTSIDE RECORDS SUMMARY | 2024-09-01 13:04 | XMS_ITS | Encounter Summary ---
Author Organization [email or web address] Address [address] [facility] [address] [place] [address] Care Team Providers Care Vice President Marketing & Development Name Role Phone Rosenda Meadows MD Primary Care Provider Encounter Details Date Type Department Care Team (Late st Contact Info) Description 04/02/2023 Orders Only [facility] MED & PEDS [address] [place], [place] [phone] Rosenda Meadows MD [address] [place], [place] [phone] Polyp of colon, unspecified part of colon, unspecified type (Primary Dx) Social History Tobacco Use Types [...] as of this encounter Visit Diagnoses Diagnosis Polyp of colon, unspecified part of colon, unspecified type- Primary documented in this encounter Additional Health Concerns Assessment Noted Time PHQ-9 Depression Total Score: 0 06/27/20 22 2:22 PM EST documented as of this encounter Care Teams Vice President Marketing & Development Relationship Specialty Start Date End Date Rosenda Meadows MD [address] [place] [address] PCP - General Internal Medicine 10/30/11 documented as of this encounter
--- OUTSIDE RECORDS SUMMARY | 2024-09-01 13:04 | XMS_ITS | Encounter Summary ---
Author Organization [employer] Address 75 [facility] [address] [place] [address] Care Team Providers Care Flight Deck Officer Name Role Phone Rosenda Meadows MD Primary Care Provider [phone] Reason for Visit * Reason Onset Date Comments chart prep 08/19/2024 Encounter Details Date Type Department Care Team ([facility] st Contact Info) Description 08/19/2024 Telephone C CHC MED & PEDS [address] [place], [place] [phone] Rosenda Meadows MD 505 [place] [address] chart prep Social History Tobacco Use Types Packs/Day Years [...] encounter Miscellaneous Notes * Telephone Encounter - Diamond Byrnes [place] - 08/19/2024 3:30 PM EST Chart Prep Labs: none Images: none Vaccines due: yes Referrals: pending appt Screenings: colonoscopy Overdue care gaps: Sbirt, SDOH, PHQ-9 documented in this encounter Plan of Treatment Not on file documented as of this encounter Visit Diagnoses Not on filedocumented in this encounter Additional Health Concerns Assessment Noted Time PHQ-9 Depression Total Score: 1 07/30/19 24 10:36 AM EST documented as of this encounter Care Teams Flight Deck Officer Relationship Specialty Start Date End Date Rosenda Meadows MD [address] [place] [address] [place] [address] PCP - General Internal Medicine 10/30/11 documented as of this encounter
--- OUTSIDE RECORDS SUMMARY | 2024-09-01 13:04 | XMS_ITS | Encounter Summary ---
Author Organization [employer] Address [address] [facility] [address] [place] [address] Care Team Providers Care Caramel Candy Maker Name Role Phone Rosenda Meadows MD Primary Care Provider Encounter Details Date Type Department Care Team (Late st Contact Info) Description 05/25/2024 Telephone [facility] MEDICINE [address] [place], [place] [phone] Rosenda Meadows MD [address] [place], [place] [phone] Social History Tobacco Use Types Packs/Day Years [...] is your housing situation today? I have magnloia sharpe 06/26/[address] you [...] encounter Miscellaneous Notes * Telephone Encounter - Kassi Lobo LPN - 05/25/2024 2:04 PM EST Incoming call to the Critical Result line 05/25/24 at 2:08 PM Name of Caller/Facility:Mariama [facility] Blood [facility] Callback number: [phone] Reason for Call: Orders and clarification required for Hemachromatosis Phlebotomy orders. Please call Mariama Directly as she did not get faxed [facility] form for Theraputic Phlebotomy and H&H and Ferritin need to be requested on that form also. Message to be forwarded to Rosenda Meadows MD and team nurses for follow up. documented in this encounter Plan of Treatment Not on file documented as of this encounter Visit Diagnoses Not on filedocumented in this encounter Additional Health Concerns Assessment Noted Time PHQ-9 Depression Total Score: 1 07/30/19 10:36 AM EST documented as of this encounter Care Teams Caramel Candy Maker Relationship Specialty Start Date End Date Rosenda Meadows MD [address] [place] [address] PCP - General Internal Medicine 10/30/11 documented as of this encounter
--- OUTSIDE RECORDS SUMMARY | 2024-09-01 13:04 | XMS_ITS | Encounter Summary ---
Author Organization [employer] Address [address] [facility] 7[address] [place] [address] Care Team Providers Care Cement Grinding Mill Operator Name Role Phone Rosenda Meaodws MD Primary Care Provider Encounter Details Date Type Department Care Team (Late st Contact Info) Description 04/08/2023 Orders Only [facility] CHC MED & PEDS [address] [place], [place] [phone] Rosenda Meadows MD 505 [place] [address] Polyp of colon, unspecified part of colon, unspecified type Social History Tobacco Use Types Packs/Day Years [...] colon, unspecified part of colon, unspecified type documented in this encounter Additional Health Concerns Assessment Noted Time PHQ-9 Depression Total Score: 0 06/27/20 22 2:22 PM EST documented as of this encounter Care Teams Cement Grinding Mill Operator Relationship Specialty Start Date End Date Rosenda Meadows MD [address] [place] [address] PCP - General Internal Medicine 10/30/11 documented as of this encounter
--- OUTSIDE RECORDS SUMMARY | 2024-09-01 13:04 | XMS_ITS | Clinical Summary ---
Author Organization [employer] Address [address] [facility] 7t [place] [address] Care Team Providers Care Residential Worker Name Role Phone Rosenda Meadows MD Primary Care Provider Allergies No known active allergies Medications aspirin 81 MG EC tablet Take 1 tablet by mouth 1 (one) time each day. 03/25/20 19 Active nicotine (Nicoderm, Step 1) 21 MG/24HR patch Place 1 patch on the skin 1 (one) time each day. Remove at bedtime 03/25/20 19 Active traZODone (Desyrel) 150 MG tablet TAKE TWO TABLETS BY MOUTH AT BEDTIME 60 tablet 5 05/30/20 23 Active albuterol (ProAir HFA) 108 (90 Base) MCG/ACT inhaler INHALE 2 PUFFS BY MOUTH EVERY 4-6 HOURS NEEDED 8.5 g 5 07/09/20 23 Active carBAMazepine XR (TEGretol XR) 200 MG 12 hr tablet TAKE 1 TABLET BY MOUTH EVERY 12 HOURS 180 tablet 1 05/03/20 24 Active atenolol (Tenormin) 100 MG tabletIndication s:Benign hypertension TAKE 1 TABLET BY MOUTH EVERY DAY 90 tablet 1 05/03/20 24 Active lisinopril 5 MG tablet TAKE 1 TABLET BY MOUTH EVERY DAY 90 tablet 1 05/03/20 24 Active simvastatin (Zocor) 20 MG tabletIndication s:Hypercholester olemia TAKE 1 TABLET BY MOUTH EVERY DAY IN THE EVENING 90 tablet 1 05/03/20 24 Active traZODone (Desyrel) 150 MG tablet TAKE TWO TABLETS BY MOUTH AT BEDTIME 60 tablet 11 06/03/20 24 Active indomethacin (Indocin) 50 MG capsuleIndicatio ns:Other secondary acute gout of right knee Take 1 capsule (50 mg) by mouth with breakfast and with evening meal. 60 capsule 2 08/23/19 25 025 Active lisinopril 10 MG tabletIndication s:Benign hypertension TAKE 1 TABLET BY MOUTH EVERY DAY ONE DOSE 90 tablet 3 08/23/19 25 Active vardenafil (Levitra) 20 MG tabletIndication s:Erectile dysfunction due to arterial insufficiency Take 1 tablet (20 mg) by mouth if needed each day for erectile dysfunction. 12 tablet 3 08/23/19 25 Active atenolol (Tenormin) 100 MG tabletIndication s:Benign hypertension Take 1 tablet (100 mg) by mouth Once per day. 90 tablet 3 08/23/19 25 Active simvastatin (Zocor) 20 MG tabletIndication s:Hypercholester olemia Take 1 tablet (20 mg) by mouth in the evening. 90 tablet 3 08/23/19 25 Active traZODone (Desyrel) 300 MG tabletIndication s:Primary insomnia Take 1 tablet (300 mg) by mouth at bedtime. 90 tablet 3 08/23/19 25 Active traZODone (Desyrel) 300 MG tablet Take 1 tablet by mouth at bedtime. 11/20/19 22 025 Discontinued(R eorder (will not trigger notification to Pharmacy)) atenolol (Tenormin) 100 MG tabletIndication s:Benign hypertension Take 1 tablet (100 mg) by mouth Once per day. 90 tablet 3 11/05/19 24 025 Discontinued(R eorder (will not trigger notification to Pharmacy)) lisinopril 5 MG tablet TAKE 1 TABLET BY MOUTH EVERY DAY ONE DOSE 90 tablet 1 11/05/19 24 025 Discontinued(R eorder (will not trigger notification to Pharmacy)) simvastatin (Zocor) 20 MG tabletIndication s:Hypercholester olemia Take 1 tablet (20 mg) by mouth in the evening. 90 tablet 3 11/05/19 24 025 Discontinued(R eorder (will not trigger notification to Pharmacy)) vardenafil (Levitra) 20 MG tabletIndication s:Erectile dysfunction due to arterial insufficiency TAKE 1 TABLET 1 HOUR BEFORE SEXUAL RELATIONS ONCE DAILY NEEDED. 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/25/2016 Hypokalemia 02/22/2014 Benign hypertension 11/22/2011 Non-allergic asthma 11/22/2011 Encounters Date Type Department Care Team Description 08/23/2024 2:45 PM EST Office Visit [facility] [address] [place] [phone] Rosenda Meadows MD Benign hypertension (Primary Dx); Other hemochromatosis; Dietary counseling; Exercise counseling; Class 1 obesity due to excess calories with serious comorbidity and body mass index (BMI) of 30.0 to 30.9 in adult; Other secondary acute gout of right knee; Erectile dysfunction due to arterial insufficiency; Hypercholesterolemia; Primary insomnia; Encounter for immunization 08/23/2024 Travel 08/19/2024 Telephone [facility] [address] [place] [address] Rosenda Meadows MD chart prep 08/16/2024 Patient Outreach [facility] [address] [place] [address] Rosenda Meadows MD Pre-visit Planning (SDOH negative, Tobacco screening negative.) 07/29/2024 Refill [facility] [address] [place] [address] Washington Grullon MD Erectile dysfunction due to arterial insufficiency 06/23/2024 Refill [facility] [address] [place] [address] Rosenda Meadows MD Erectile dysfunction due to arterial insufficiency 06/03/2024 Refill [facility] [address] [place] [address] Rosenda Meadows MD 06/01/2024 Orders Only [facility] [address] [place] [address] Rosenda Meadows MD from Last 3 Months Immunizations Name Administration Dates Next Due Tdap 08/23/2024 Family History Medical History Relation Name Comments Hemochromatosis Father Coronary artery disease Mother Relation Name Status Comments Father Mother Social History Tobacco Use Types Packs/Day Years Used Date Smoking Tobacco: Every Day Cigarettes 1 42 Smokeless Tobacco: Never Tobacco Cessation:Ready to Q uit: Not Asked; Counseling Given: Not Answered Alcohol Use Standard Drinks/Week Comments Yes 4 [...] not to disclose 2021 10:22 AM EDT Last Filed Vital Signs Vital Sign Reading [...] Mass Index 30.85 08/23/2024 2:49 PM EST Plan of Treatment Health Maintenance Due Date Last Done Comments CT Colonography 1967 Colonoscopy 1967 Colorectal Cancer Screening 1967 Dental Prophylaxis 1967 FIT DNA/Cologuard 1967 FIT 1967 FOBT 1967 HIV Screening 1965 Sigmoidoscopy 1967 Hepatitis C Screening 1985 Lung Cancer Screening 2017 Zoster Vaccines (1 of 2) 2017 Dental Oral Exam 11/12/2023 05/13/2023 Dental X-Ray: Bitewings 05/14/2024 05/13/2023 Influenza Vaccine (#1) 2025 Postp oned from 03/14/2024 (Patient Refused) Alcohol/Substance Use Screening 08/23/2025 08/23/2024 COVID-19 Vaccine (1 - 2023-2 5 season) 2025 Postponed from 03/14 (Patient Refused) Depression Screening 08/23/2025 08/23/2024, 08/23/2024 Hepatitis B Vaccines (1 of 3 - 19+ 3-dose series) 08/23/2025 Postponed from 04/13 (Patient Refused) Pneumococcal Vaccine: 50+ Years (1 of 2 - PCV) 08/23/2025 Postponed from 04/13 (Patient Refused) SDOH Screening 08/23/2025 08/23/2024 Tobacco Screening 08/23/2025 08/23/2024 Dental X-Ray: Full Mouth 05/14/2026 05/13/2023 Lipid Panel 07/30/2028 07/30/2023 DTaP/Tdap/Td Vaccines (2 - T d or Tdap) 08/23/2034 08/23/2024 RSV Patients and Patients Aged 60 years or older (1 - 1-dose 75+ series) 2042 HIB Vaccines Aged Out No longer eligi ble based on patient's age to complete this topic HPV Vaccines Aged Out No longer eligi ble based on patient's age to complete this topic Hepatitis A Vaccines Aged Out No long er eligible based on patient's age to complete this topic IPV Vaccines Aged Out No longer eligi ble based on patient's age to complete this topic Meningococcal Vaccine Aged Out No tania sri eligible based on patient's age to complete this topic RSV under 20 months Aged Out No longe r eligible based on patient's age to complete this topic Rotavirus Vaccines Aged Out No longer eligible based on patient's age to complete this topic Procedures Procedure Name Priority Date/Time Associated Diagnosis Comments THERAPEUTIC PHLEBOTOMY Routine 06/01/2024 3:30 PM EST FERRITIN Routine 06/01/2024 3:30 PM EST Other hemochromatosis LIPID PANEL, STANDARD Routine 07/30/2023 10:50 AM EST Benign hypertension Other hemochromatosis Hypokalemia Weight loss INTRAORAL - COMPLETE SERIES OF RADIOGRAPHIC IMAGES Routine 05/13/2023 9:45 AM EDT COMPREHENSIVE ORAL EVALUATION - NEW OR ESTABLISHED PATIENT Routine 05/13/2023 9:45 AM EDT from Last 3 Months or Most Recently Relevant to Health Maintenance Results * Therapeutic Phlebotomy (06/01/2024 3:30 PM EST) THER/HGB 16.4 14.0 - 18.0 g/dL [facility] THER/HCT TNP 42.0 - 52.0 % [facility] PHLEBOTOMY (THERAPEUTIC) Phlebotomy Performed [facility] Comment:500 mls drawn on .Please note that a copy of this report [facility], the ordering physician and anyphysician designated by patient request. 06/01/2024 3:30 PM EST 06/01/2024 3:44 PM EST us Rosenda Meadows MD LAB BLOOD BANK TEST ORDERAB LES Final Result Performing Organization Address [facility]/ZIP Co de Phone Number [facility] [address] [place] [phone] * Ferritin (06/01/2024 3:30 PM EST) Ferritin 32 20 - 250 ng/mL [facility] Blood Venous blood specimen / Unknown 06/01/2024 3:30 PM EST 06/01/2024 3:46 PM EST us Rosenda Meadows MD LAB BLOOD ORDERABLES Final Result Performing Organization Address [facility] Co de Phone Number [facility] [address] [place] [phone] * (ABNORMAL) Lipid Panel, Standard (07/30/2023 10:50 AM EST) Triglycerides 436(H) <150 mg/dL [facility] Comment:Desirable Triglyceri de: less than 150 mg/dLBorderline High Triglyceride 150-199 mg/dLHigh Triglyceride: 200-499 mg/dLVery High Triglyceride: greater than or equal to 5OO mg/dL Cholesterol 153 <200 mg/dL [facility] Comment:Desirable Cholestero l: less than 200 mg/dLBorderline High Cholesterol: 200-239 mg/dLHigh Cholesterol: greater than 239 mg/dL LDL Cholesterol Calculated TNP <100 mg/dL [facility] Comment:Unable to calculate the LDL. The formula of Friedwald,Rai, and Niels is only valid if the triglycerides areless than 400 mg/dl. HDL Cholesterol 63 >40 mg/dL [facility] Comment:Desirable HDL: great er than 40 mg/dL Note: This HDL assay may give artificially low results in patients with liver disease. Blood Venous blood specimen / Unknown 07/30/2023 10:50 AM EST 07/30/2023 2:26 PM EST us Rosenda Meadows MD LAB BLOOD ORDERABLES Final Result [facility] [address] [place] [address] [phone] from Last 3 Months or Most Recently Relevant to Health Maintenance Insurance [facility]IC[facility]ICAID [facility] AD[facility] Care Teams Residential Worker Relationship Specialty Start Date End Date Rosenda Meadows MD [address] [place] [address] PCP - General Internal Medicine 10/30/11
[2024-09-01 14:42] LABS: Ferritin 24 ng/mL (20-250)
== END 2024-09-01 12:53 | disposition home or self-care (01) ==
LOC: HO.BBR 12:52
PROVIDERS: PCP Internal Medicine; Visit Provider Internal Medicine Gastroenterology
DX: E83.110 Hereditary hemochromatosis (principal)
CPT/HCPCS: 36415; 82728

== ENCOUNTER 2024-12-13 14:51 | Outpatient (REF) | payer MEDICARE, SELFPAY ==
--- OUTSIDE RECORDS SUMMARY | 2024-12-13 16:08 | XMS_ITS | Encounter Summary ---
Author Organization [email or web address] Address [address] [facility] 7 [place] [address] Care Team Providers Care Shop Laborer Name Role Phone Rosenda Meadows MD Primary Care Provider [phone] Reason for Referral * Imaging (Routine) - Closed Specialty Diagnoses / Procedures Referred By Contac t Referred To Contact Radiology Diagnoses Weight loss Smoking Procedures CT Low Dose Screening Rosenda Meadows MD [address] [place] [address] Phone: tel: fax: [facility] [address] [place], [place] Phone: tel: fax: Referral ID Status Reason Start Date Expiration Date Visits Re quested Visits Authorized [id number] Closed 08/08/2023 08/07/2024 1 1 * Imaging (Routine) - Closed Specialty Diagnoses / Procedures Referred By Contac t Referred To Contact Radiology Diagnoses Transaminitis Procedures US Abdomen Complete Rosenda Meadows MD [address] [place] [address] Phone: tel: fax: [facility] [address] [place] [address] Phone: tel: fax: Referral ID Status Reason Start Date Expiration Date Visits Re quested Visits Authorized [id number] Closed 07/30/2023 07/29/2024 1 1 Encounter Details Date Type Department Care Team (Late st Contact Info) Description 07/30/2023 Orders Only [facility] MED & PEDS [address] [place] [address] Rosenda Meadows MD [address] [place] [address] Transaminitis (Primary Dx); Encounter for screening for [...] AM EDT documented as of this encounter Functional Status * Over the past 2 weeks, how often have you been bothered by any of the following problems? Question Answer Date of Assessment Author Patient Health Questionnaire-2 Score 0 07/14 10:36 AM Diamond Portillo MA * Over the past 2 weeks, how often have you been bothered by any of the following problems? Question Answer Date of Assessment Author Little interest or pleasure in doing things Not at all 07/30/2023 10:36 AM Diamond Portillo MA Feeling down, depressed, or hopeless Not at all 07/30/2023 10:36 AM Diamond Portillo MA Trouble falling or staying asleep, or sleeping too much Not at all 07/30/2023 10:36 AM Diamond Portillo MA Feeling tired or having michelle le energy Several days 07/30/2023 10:36 AM Diamond Portillo MA Poor appetite or overeating Not at all 07/30/2023 10 :36 AM Diamond Portillo MA Feeling bad about yourself - or that you are a failure or have let yourself or your family down Not at all 07/30/2023 10:36 AM Diamond Portillo MA Trouble concentrating on things, such as reading the newspaper or watching television Not at all 07/30/2023 10:36 AM Diamond Portillo MA Moving or speaking so slowly that other people could have noticed? Or the opposite - being so fidgety or restless that you have been moving around a lot more than usual. Not at all 07/30/2023 10:36 AM Diamond Portillo MA Thoughts that you would be better off or hurting yourself in some way Not at all 07/30/2023 10:36 AM Diamond Portillo M A Patient Health Questionnaire -9 Score 1 07/30/2023 10:36 AM Diamond Portillo MA documented as of this encounter Plan of [...] EST Narrative 08/18/2023 10:55 AM EST ? [facility] ?[address] ? [place] [address] ? Ultrasound Report ? Signed ? Patient: Steven Eddy ?MR#: [id number] ?? [id number] ? : 1965 ?Acct:[id number] ? Age/Sex: 58 / M ?ADM Date: 08/15/23 ? Loc: HO.HMGCX ? Attending Dr: Rosenda Meadows MD ? Ordering Physician: Rosenda Meadows MD ?? Date of Service: 08/15/23 ?? Procedure(s): US abdomen complete ?? Accession Number(s): [id number] ? cc: Rosenda Meadows MD ? EXAMINATION: [...] signed by Jl Brush MD in OV> ?08/18/231 ? DD/ 1146 ? TD/TT: ? System Engineer: ENRRIQUE ? Procedure Note Mohsen Adhikari - 08/18/2023 [facility] [address] [place] [address] [place] [address] Ultrasound Report Signed Patient: Steven Eddy AMR#: [id number] : 1965Acct:[id number] Age/Sex: 58 / MADM Date: 08/15/23 Loc: HO.HMGCX Attending Dr: Rosenda Meadows MD Ordering Physician: Rosenda Meadows MD Date of Service: 08/15/23 Procedure(s): US abdomen complete Accession Number(s): [id number] cc: Rosenda Meadows MD EXAMINATION: US ABDOMEN [...] in OV> 08/18/23 1051 DD/ 1146 TD/TT: System Engineer: ENRRIQUE us Rosenda Meadows MD IMG US PROCEDURES [...] documented as of this encounter Care Teams Shop Laborer Relationship Specialty Start Date End Date Rosenda Meadows MD [address] [place] [phone] PCP - General Internal Medicine 10/30/11 documented as of this encounter
[2024-12-13 16:42] LABS: Ferritin 44 ng/mL (20-250)
== END 2024-12-13 14:52 | disposition home or self-care (01) ==
LOC: HO.BBR 14:51
PROVIDERS: PCP Internal Medicine; Visit Provider Internal Medicine
DX: E83.110 Hereditary hemochromatosis (principal)
CPT/HCPCS: 36415; 82728

== ENCOUNTER 2025-05-10 11:44 | Outpatient (REF) | payer MEDICARE, SELFPAY ==
[2025-05-10 13:22] LABS: Ferritin 211 ng/mL (20-250)
--- OUTSIDE RECORDS SUMMARY | 2025-05-10 15:12 | XMS_ITS | Encounter Summary ---
Author Organization [employer] Address [address] [facility] 7t [place] [address] Care Team Providers Care Senior Dynamics Crm Developer Name Role Phone Rosenda Meadows MD Primary Care Provider Reason for Visit * Reason Onset Date Comments Lab Orders 05/03/2024 Encounter Details Date Type Department Care Team ([facility] st Contact Info) Description 05/03/2024 Telephone [facility] MED [facility] PEDS [address] [place], [place] [phone] Rosenda Meadows MD [address] [place] [address] Lab Orders Social History Tobacco Use Types [...] documented as of this encounter Care Teams Senior Dynamics Crm Developer Relationship Specialty Start Date End Date Rosenda Meadows MD [address] [place] [address] PCP - General Internal Medicine 10/30/11 documented as of this encounter
--- OUTSIDE RECORDS SUMMARY | 2025-05-10 15:12 | XMS_ITS | Encounter Summary ---
Author Organization [employer] Address [address] [facility] 7t [place] [address] Care Team Providers Care Electrical Logging Engineer Name Role Phone Rosenda Meadows MD Primary Care Provider [phone] Encounter Details Date Type Department Care Team (Late st Contact Info) Description 05/08/2023 Telephone [facility] [address] [place] [address] Rosenda Meadows MD [address] [place], [place] [phone] Social History Tobacco Use Types Packs/Day Years [...] documented as of this encounter Care Teams Electrical Logging Engineer Relationship Specialty Start Date End Date Beauzile, Thevenin, MD [address] [place] [address] PCP - General Internal Medicine 10/30/11 documented as of this encounter
--- OUTSIDE RECORDS SUMMARY | 2025-05-10 15:12 | XMS_ITS | Encounter Summary ---
Author Organization [employer] Address [address] [facility] 7t [place] [address] Care Team Providers Care Area Director Name Role Phone Rosenda Meadows MD Primary Care Provider [phone] Encounter Details Date Type Department Care Team (Late st Contact Info) Description 04/02/2023 Orders Only [facility]EDS [address] [place], [place] [phone] Rosenda Meadows MD [address] [place], [place] [phone] Polyp of colon, unspecified part of colon, [...] documented as of this encounter Care Teams Area Director Relationship Specialty Start Date End Date Rosenda Meadows MD [address] [place] [phone] PCP - General Internal Medicine 10/30/11 documented as of this encounter
--- OUTSIDE RECORDS SUMMARY | 2025-05-10 15:12 | XMS_ITS | Encounter Summary ---
Author Organization [employer] Address [address] [facility] 7 [place] [address] Care Team Providers Care Online Services Manager Name Role Phone Rosenda Meadows MD Primary Care Provider [phone] Reason for Referral * Imaging (Routine) - Closed Specialty Diagnoses / Procedures Referred By Contac t Referred To Contact Radiology Diagnoses Weight loss Smoking Procedures CT Low Dose Screening Rosenda Meadows MD [address] [place] [address] Phone: tel: fax: [facility] [address] [place] [address] Phone: tel: fax: Referral ID Status Reason Start Date Expiration Date Visits Re quested Visits Authorized [id number] Closed 08/08/2023 08/07/2024 1 1 * Imaging (Routine) - Closed Specialty Diagnoses / Procedures Referred By Contac t Referred To Contact Radiology Diagnoses Transaminitis Procedures US Abdomen Complete Rosenda Meadows MD [address] [place] [address] Phone: tel: fax: [address] Phone: tel: fax: Referral ID Status Reason Start Date Expiration Date Visits Re quested Visits Authorized [id number] Closed 07/30/2023 07/29/2024 1 1 Encounter Details Date Type Department Care Team (Late st Contact Info) Description 07/30/2023 Orders Only [facility] [address] [place] [address] Rosenda Meadows MD [address] [place] [address] Transaminitis (Primary Dx); Encounter for screening for [...] AM EST Narrative 08/18/2023 10:55 AM EST [facility] [address] [place] [address] [place] [address] Ultrasound Report Signed Patient: Steven Eddy MR#: [id number] : 1965 Acct:[id number] Age/Sex: 58 / M ADM Date: 08/15/23 Loc: HO.HMGCX Attending Dr: Rosenda Meadows MD Ordering Physician: Rosenda Meadows MD Date of Service: 08/15/23 Procedure(s): US abdomen complete Accession Number(s): [id number] cc: Rosenda Meadows MD EXAMINATION: US ABDOMEN [...] in OV> 08/18/23 1051 DD/ 1146 TD/TT: Waste Water Or Water Plant Operator: ENRRIQUE Procedure Note Donotuseinterpreter, Image - 08/18/2023 [facility] [place] [address] Ultrasound Report Signed Patient: Steven Eddy AMR#: [id number] : 1965Acct:[id number] Age/Sex: 58 / MADM Date: 08/15/23 Loc: HO.HMGCX Attending Dr: Rosenda Meadows MD Ordering Physician: Rosenda Meadows MD Date of Service: 08/15/23 Procedure(s): US abdomen complete Accession Number(s): [id number] cc: Rosenda Meadows MD EXAMINATION: US ABDOMEN [...] in OV> 08/18/23 1051 DD/ 1146 TD/TT: Waste Water Or Water Plant Operator: ENRRIQUE us Rosenda Meadows MD IMG US [...] documented as of this encounter Care Teams Online Services Manager Relationship Specialty Start Date End Date Rosenda Meadows MD [address] [place] [phone] PCP - General Internal Medicine 10/30/11 documented as of this encounter
--- OUTSIDE RECORDS SUMMARY | 2025-05-10 15:12 | XMS_ITS | Encounter Summary ---
Author Organization [employer] Address [address] [facility] 7t [place] [address] Care Team Providers Care Siebel Consultant Name Role Phone Rosenda Meadows MD Primary Care Provider Encounter Details Date Type Department Care Team (Late st Contact Info) Description 05/05/2024 Orders Only [facility] [address] [place], [place] [phone] Rosenda Meadows MD [address] [place], [place] [phone] Other hemochromatosis (Primary Dx) Social History Tobacco [...] EST) Ferritin 32 20 - 250 ng/mL [facility] Blood Venous blood specimen / Unknown 06/01/2024 3:30 PM EST 06/01/2024 3:46 PM EST us Rosenda Meadows MD LAB BLOOD ORDERABLES Final Result [facility] [address] [place] [address] [phone] documented in this encounter Visit Diagnoses Diagnosis Other hemochromatosis- Primary documented in this encounter Additional Health Concerns Assessment Noted Time PHQ-9 Depression Total Score: 1 07/30/19 24 10:36 AM EST documented as of this encounter Care Teams Siebel Consultant Relationship Specialty Start Date End Date Rosenda Meadows MD [address] [place] [phone] PCP - General Internal Medicine 10/30/11 documented as of this encounter
--- OUTSIDE RECORDS SUMMARY | 2025-05-10 15:12 | XMS_ITS | Clinical Summary ---
Author Organization [facility] Address [address] [facility] [address] [place] [phone] Phone Care Team Providers Care Tile Molder Hand Name Role Phone Pcp, Unknown Primary Care Provider Unavailabl e Allergies No known active allergies Medications PROAIR HFA 90 mcg/actuation inhaler INHALE 2 PUFFS BY MOUTH EVERY 4-6 HOURS NEEDED 04/09/2022 Active atenolol (TENORMIN) 100 MG tablet Take 100 mg by mouth daily. 03/11/2022 Active carBAMazepine (TEGRETOL XR) 200 MG 12 hr tablet TAKE ONE TABLET EVERY TWELVE HOURS 04/09/2022 Active lisinopril (PRINIVIL,ZESTR IL) 5 MG tablet Take 5 mg by mouth daily. 03/11/2022 Active simvastatin (ZOCOR) 20 MG tablet Take 20 mg by mouth every evening. 03/11/2022 Active traZODone (DESYREL) 150 MG tablet TAKE TWO TABLETS AT BEDTIME 03/25/2022 Active aspirin 81 MG EC tablet Take 81 mg by mouth daily. Active Active Problems No known active problems Social History Tobacco Use Types Packs/Day Years Used Date Smoking Tobacco: Every Day Smokeless Tobacco: Never Education Answer Date Recorded Are you interested in more education? Not on key e 11/07/2022 Are you concerned about learning? Not on file 11/07/2022 No 11/07/2022 No 11/07/2022 Digital Access Answer Date Recorded No 12/10/2022 No 12/10/2022 Reliable internet access at home? Not on file 12/10/2022 Device with a working camera? Not on file Sex and Gender Information Value Date Recorded Sex Assigned at Not on file Legal Sex Male 10:38 AM EDT Gender Identity Not on file Sexual Orientation Not on file Last Filed Vital Signs Vital Sign Reading Time Taken Comments Blood Pressure 167/68 04/22/2022 11:00 AM EDT Pulse 80 04/22/2022 11:00 AM EDT Temperature 37.1 C (98.8 F) 04/22/2022 11:00 AM EDT Respiratory Rate 16 04/22/2022 11:00 AM EDT Oxygen Saturation 95% 04/22/2022 11:00 AM EDT Inhaled Oxygen Concentration - - Weight 141.1 kg (311 lb) 04/22/2022 11:00 AM EDT Height - - Body Mass Index - - Plan of Treatment Health Maintenance Due Date Last Done Comments Adult Td,Tdap Booster 1965 CARBAMAZEPINE (TEGRETOL) LEVEL 1965 CREATININE LEVEL 1965 LIPID PANEL 1965 POTASSIUM LEVEL 1967 DEPRESSION SCREENING 1979 SMOKING Hx and SMOKELESS TOB ACCO SCREENING 1980 HEPATITIS C SCREENING 1985 HIV ONE-TIME SCREENING (18-6 5 YEARS) 1985 PNEUMOCOCCAL VACCINES (50+ y ears) (1 of 2 - PCV) 1986 COLOGUARD 2012 COLONOSCOPY 2012 COLORECTAL CANCER SCREENING 2012 FIT TEST 2012 FOBT 2012 SIGMOIDOSCOPY 2012 VIRTUAL COLONOSCOPY 2012 ZOSTER VACCINES (1 of 2) 2017 INFLUENZA VACCINE (#1) 2025 COVID-19 VACCINE (1 - 2024-2 6 season) 2025 RSV VACCINE (1 - 1-dose 75+ series) 2042 HEPATITIS A VACCINES Aged Out No long er eligible based on patient's age to complete this topic HIB VACCINES Aged Out No longer eligi ble based on patient's age to complete this topic MENINGOCOCCAL VACCINES (ACWY) Aged Out No longer eligible based on patient's age to complete this topic MENINGOCOCCAL VACCINES (B) Aged Out N o longer eligible based on patient's age to complete this topic Medical Devices Not on file Insurance MEDICARE PART A & B MEDICARE PART A & B MEDICARE PART A & B MEDICARE PART A & B MEDICARE PART A & B MEDICARE PART A & B MEDICARE PART A & B MEDICARE PART A & B MEDICARE PART A & B Care Teams Tile Molder Hand Relationship Specialty Start Date End Date Pcp, Unknown PCP - General 04/22/22 Additional Source Comments The information contained in this document represents components of the legal health record. It is not the complete legal health record.[facility]
--- OUTSIDE RECORDS SUMMARY | 2025-05-10 15:12 | XMS_ITS | Encounter Summary ---
Author Organization [employer] Address [address] [facility] 7t [place] [address] Care Team Providers Care Power Plant Electrician Name Role Phone Rosenda Meadows MD Primary Care Provider Encounter Details Date Type Department Care Team (Late st Contact Info) Description 04/08/2023 Orders Only [facility] [address] [place], [place] [phone] Rosenda Meadows MD [address] [place], [place] [phone] Polyp of colon, unspecified part of colon, [...] Noted Time PHQ-9 Depression Total Score: 0 12/15/20 22 2:22 PM EST documented as of this encounter Care Teams Power Plant Electrician Relationship Specialty Start Date End Date Rosenda Meadows MD [address] [place] [phone] PCP - General Internal Medicine 10/30/11 documented as of this encounter
--- OUTSIDE RECORDS SUMMARY | 2025-05-10 15:12 | XMS_ITS | Encounter Summary ---
Author Organization [employer] Address [address] [facility] 7t [place] [address] Care Team Providers Care Structural Designer Name Role Phone Rosenda Meadows MD Primary Care Provider Encounter Details Date Type Department Care Team (Late st Contact Info) Description 11/26/2022 Orders Only [facility] [address] [place] [phone] Nat Lucas LPN Social History Tobacco Use [...] documented as of this encounter Care Teams Structural Designer Relationship Specialty Start Date End Date Rosenda Meadows MD [address] [place] [address] PCP - General Internal Medicine 10/30/11 documented as of this encounter
--- OUTSIDE RECORDS SUMMARY | 2025-05-10 15:12 | XMS_ITS | Clinical Summary ---
Author Organization [employer] Address [address] [facility] 7t [place] [address] Care Team Providers Care Industrial Garage Servicer Name Role Phone Rosenda Meadows MD Primary Care Provider Allergies No known active allergies Medications aspirin 81 MG EC tablet Take 1 tablet by mouth 1 (one) time each day. 9 Active nicotine (Nicoderm, Step 1) 21 MG/24HR patch Place 1 patch on the skin 1 (one) time each day. Remove at bedtime 9 Active traZODone (Desyrel) 150 MG tablet TAKE TWO TABLETS BY MOUTH AT BEDTIME 60 tablet 5 3 Active atenolol (Tenormin) 100 MG tabletIndications: Benign hypertension TAKE 1 TABLET BY MOUTH EVERY DAY 90 tablet 1 4 Active lisinopril 5 MG tablet TAKE 1 TABLET BY MOUTH EVERY DAY 90 tablet 1 4 Active simvastatin (Zocor) 20 MG tabletIndications: Hypercholesterolem ia TAKE 1 TABLET BY MOUTH EVERY DAY IN THE EVENING 90 tablet 1 4 Active traZODone (Desyrel) 150 MG tablet TAKE TWO TABLETS BY MOUTH AT BEDTIME 60 tablet 11 4 Active lisinopril 10 MG tabletIndications: Benign hypertension TAKE 1 TABLET BY MOUTH EVERY DAY ONE DOSE 90 tablet 3 5 Active atenolol (Tenormin) 100 MG tabletIndications: Benign hypertension Take 1 tablet (100 mg) by mouth Once per day. 90 tablet 3 5 Active simvastatin (Zocor) 20 MG tabletIndications: Hypercholesterolem ia Take 1 tablet (20 mg) by mouth in the evening. 90 tablet 3 5 Active traZODone (Desyrel) 300 MG tabletIndications: Primary insomnia Take 1 tablet (300 mg) by mouth at bedtime. 90 tablet 3 5 Active albuterol 108 (90 Base) MCG/ACT inhaler INHALE 2 PUFFS BY MOUTH EVERY 4-6 HOURS NEEDED 8.5 g 5 5 Active carBAMazepine XR (TEGretol XR) 200 MG 12 hr tablet TAKE 1 TABLET BY MOUTH EVERY 12 HOURS 180 tablet 1 5 Active vardenafil (Levitra) 20 MG tabletIndications: Erectile dysfunction due to arterial insufficiency TAKE 1 TABLET 1 HOUR BEFORE SEXUAL RELATIONS ONCE DAILY NEEDED. 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 Hypokalemia 02/22/2014 Benign hypertension 11/22/2011 Non-allergic asthma 11/22/2011 Immunizations Immunization Administration Dates Next Due Tdap 08/23/2024 Family [...] 57 08/23/2024 2:49 PM EST Temperature 36.9 C (98.4 F) 08/23/2024 2:49 PM EST Respiratory Rate 20 08/23/2024 2:49 PM EST [...] FOBT 1965 HIV Screening 1965 Sigmoidoscopy 1965 Disability Screening 1967 Hepatitis C Screening 1985 Lung Cancer Screening 2017 Zoster Vaccines (1 of 2) 2017 Dental Oral Exam 11/12/2023 05/13/2023 Dental X-Ray: Bitewings 05/14/2024 05/13/2023 COVID-19 Vaccine (1 - 2023-2 5 season) 2025 Influenza Vaccine (#1) 2025 Alcohol/Substance Use Screening 08/23/2025 08/23/2024 Depression Screening 08/23/2025 08/23/2024, 08/23/2024 Hepatitis B [...] patient's age to complete this topic Meningococcal B Vaccine Aged Out No l onger eligible based on patient's age to complete [...] Procedure Name Priority Date/Time Associated Diagnosis Comments LIPID PANEL, STANDARD Routine 07/30/2023 10:50 AM EST Benign hypertension Other hemochromatosis Hypokalemia Weight loss INTRAORAL - COMPLETE SERIES OF RADIOGRAPHIC IMAGES Routine 05/13/2023 9:45 AM EDT COMPREHENSIVE ORAL EVALUATION - NEW OR ESTABLISHED PATIENT Routine 05/13/2023 9:45 AM EDT from Last 3 Months or Most Recently Relevant to Health Maintenance Results * (ABNORMAL) Lipid Panel, Standard (07/30/2023 10:50 AM EST) Triglycerides 436(H) <150 mg/dL [facility] Comment:Desirable Triglyceri de: less than 150 mg/dLBorderline High Triglyceride 150-199 mg/dLHigh Triglyceride: 200-499 mg/dLVery High Triglyceride: greater than or equal to 5OO mg/dL Cholesterol 153 <200 mg/dL [facility] Comment:Desirable Cholestero l: less than 200 mg/dLBorderline High Cholesterol: 200-239 mg/dLHigh Cholesterol: greater than 239 mg/dL LDL Cholesterol Calculated TNP <100 mg/dL [facility] Comment:Unable to calculate the LDL. The formula of Friedwald,Rai, and Niels is only valid if the triglycerides areless than 400 mg/dl. HDL Cholesterol 63 >40 mg/dL [facility] Comment:Desirable HDL: great er than 40 mg/dL Note: This HDL assay may give artificially low results in patients with liver disease. Blood Venous blood specimen / Unknown 07/30/2023 10:50 AM EST 07/30/2023 2:26 PM EST us Rosenda Meadows MD LAB BLOOD ORDERABLES Final Result [facility] [address] [place] [address] [phone] from Last 3 Months or Most Recently Relevant to Health Maintenance Insurance [facility] ST[facility] AD[facility] Care Teams Industrial Garage Servicer Relationship Specialty Start Date End Date Rosenda Meadows MD [address] [place] [phone] PCP - General Internal Medicine 10/30/11
== END 2025-05-10 11:45 | disposition home or self-care (01) ==
LOC: HO.BBR 11:44
PROVIDERS: Visit Provider Internal Medicine
DX: E83.110 Hereditary hemochromatosis (principal)
CPT/HCPCS: 36415; 82728